=== PATIENT | female | born 2000 | race Caucasian/White ===

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

== ENCOUNTER 2022-12-30 11:26 | Inpatient (IN) ==
[2022-12-30 13:22] LABS: ABS Basophils 0.1 10^3/uL (0.0-0.1); ABS Lymphocytes 2.6 10^3/uL (1.0-4.8); ABS Monocytes 0.4 10^3/uL (0.0-0.9); ABS Neutrophils 2.1 10^3/uL (1.5-7.6); Eosinophil % 0.8 %; Hematocrit 41.5 % (35-45); Hemoglobin 14.2 g/dL (11.5-14.3); Lymphocyte % 49.3 %; Mean Corpuscular Hemoglobin 31.2 pg (27-33); Mean Corpuscular Hgb Conc 34.4 g/dL (31-36); Mean Corpuscular Volume 90.9 fL (80-97); Mean Platelet Volume 8.7 fL (7.5-11.2); Nucleated Red Blood Cells % 0.1 /100 WBC (0.0-0.4); Platelet Count 303 10^3/uL (150-450); Red Blood Count 4.56 10^6/uL (3.63-4.92); Red Cell Distribution Width 13.4 % (12-17); White Blood Count 5.2 10^3/uL (3.8-11.8)
[2022-12-30 14:08] LABS: HCG Pregnancy < 0.60 mIU/mL
[2022-12-30 14:11] LABS: ALT 6 U/L (7-52); AST 15 U/L (13-39); Acetaminophen < 15 mcg/mL; Albumin 5.1 g/dL (3.2-5.2); Albumin/Globulin Ratio 2.2 (1-3); Alcohol, S < 13 mg/dL (<13); Alkaline Phosphatase 69 U/L (35-149); Anion Gap 9 mmol/L (2-16); Blood Urea Nitrogen 8 mg/dL (6-24); C Reactive Protein 1.93 mg/L (<8.01); CO2 Carbon Dioxide 27 mmol/L (22-32); Calcium 10.4 mg/dL (8.6-10.3); Chloride 106 mmol/L (101-111); Creatinine, Serum 0.72 mg/dL (0.51-0.95); Globulin 2.3 g/dL (2-4); Glucose 95 mg/dL (70-100); Lithium < 0.10 mmol/L (0.6-1.2); Potassium 3.8 mmol/L (3.5-5.0); Salicylate < 2.50 mg/dL (<30); Sodium 142 mmol/L (135-145); Total Protein 7.4 g/dL (6.4-8.9); eGFR CKD-EPI 120.4 (>60)
[2022-12-30 14:17] LABS: TSH Ultra Thyroid Stim Horm 2.25 mcIU/mL (0.34-5.60)
[2022-12-30 16:36] LABS: Urine Appearance Cloudy; Urine Bilirubin Negative (Negative); Urine Blood Negative (Negative); Urine Color Yellow; Urine Glucose Negative (Negative); Urine Ketones Negative (Negative); Urine Nitrite Negative (Negative); Urine Protein Negative (Negative); Urine Specific Gravity 1.005 (1.002-1.030); Urine Urobilinogen Negative (Negative)
[2022-12-30 17:21] LABS: Urine Benzodiazepine Screen None Detected (None Detect); Urine Cannabinoids Screen Presumptive Positive (None Detect); Urine Opiates Screen None Detected (None Detect)
[2022-12-30] MEDS: Nicotine GUM 2MG FRUIT FLAVOR PO PRN ×2 (19:31→22:38)
[2022-12-31] MEDS: Nicotine PATCH 14 MG/24 HR PATCH TRANSDERM SCH (09:26)
[2022-12-31] MEDS: Vitamin THERAPEUTIC TAB PO SCH (09:26)
[2022-12-31] MEDS ORDERED: OLANZapine 5 mg TAB *ODT PO PRN (12:38)
[2022-12-31] MEDS: Nicotine GUM 2MG FRUIT FLAVOR PO PRN (14:26)
[2023-01-01] MEDS: Nicotine PATCH 14 MG/24 HR PATCH TRANSDERM SCH (08:24)
[2023-01-01] MEDS: Vitamin THERAPEUTIC TAB PO SCH (09:07)
[2023-01-01] MEDS: Nicotine GUM 2MG FRUIT FLAVOR PO PRN ×3 (16:03→20:56)
[2023-01-02] MEDS: Nicotine PATCH 14 MG/24 HR PATCH TRANSDERM SCH (08:39)
[2023-01-02] MEDS: Vitamin THERAPEUTIC TAB PO SCH (08:40)
[2023-01-02] MEDS: Lithium Carbonate ER 450mg TAB PO SCH (19:20)
[2023-01-02] MEDS: Nicotine GUM 2MG FRUIT FLAVOR PO PRN (23:27)
[2023-01-03] MEDS: Nicotine PATCH 14 MG/24 HR PATCH TRANSDERM SCH (07:14)
[2023-01-03] MEDS: Vitamin THERAPEUTIC TAB PO SCH (07:15)
[2023-01-03] MEDS: Al Hydrox/Mg Hydrox/Simet LIQ 30 ML UDC PO PRN (12:19)
[2023-01-03] MEDS: Nicotine GUM 2MG FRUIT FLAVOR PO PRN ×2 (14:23→20:58)
[2023-01-03] MEDS: Lithium Carbonate ER 450mg TAB PO SCH (20:55)
[2023-01-04] MEDS: Vitamin THERAPEUTIC TAB PO SCH (08:55)
[2023-01-04] MEDS: Nicotine PATCH 14 MG/24 HR PATCH TRANSDERM SCH (08:55)
[2023-01-04] MEDS: Nicotine GUM 2MG FRUIT FLAVOR PO PRN ×3 (11:05→22:40)
[2023-01-04] MEDS: Lithium Carbonate ER 450mg TAB PO SCH (20:00)
[2023-01-05] MEDS: Nicotine PATCH 14 MG/24 HR PATCH TRANSDERM SCH (09:02)
[2023-01-05] MEDS: Vitamin THERAPEUTIC TAB PO SCH (09:03)
[2023-01-05] MEDS: Nicotine GUM 2MG FRUIT FLAVOR PO PRN ×2 (18:22→22:58)
[2023-01-05] MEDS: Lithium Carbonate ER 450mg TAB PO SCH (19:28)
[2023-01-06] MEDS: Nicotine PATCH 14 MG/24 HR PATCH TRANSDERM SCH (08:48)
[2023-01-06] MEDS: Vitamin THERAPEUTIC TAB PO SCH (08:48)
[2023-01-06] MEDS: Nicotine GUM 2MG FRUIT FLAVOR PO PRN ×3 (08:51→20:31)
[2023-01-06] MEDS: OLANZapine 5 mg TAB *ODT PO SCH (10:29)
[2023-01-06] MEDS: Lithium Carbonate ER 450mg TAB PO SCH (20:28)
[2023-01-07] MEDS: Vitamin THERAPEUTIC TAB PO SCH (07:30)
[2023-01-07] MEDS: OLANZapine 5 mg TAB *ODT PO SCH (07:30)
[2023-01-07] MEDS: Nicotine PATCH 14 MG/24 HR PATCH TRANSDERM SCH ×2 (07:44→09:30)
[2023-01-07] MEDS: OLANZapine 10 mg TAB*ODT PO SCH (19:19)
[2023-01-07] MEDS: Lithium Carbonate ER 450mg TAB PO SCH (19:19)
[2023-01-08] MEDS: Vitamin THERAPEUTIC TAB PO SCH (07:42)
[2023-01-08] MEDS: OLANZapine 5 mg TAB *ODT PO SCH (07:43)
[2023-01-08] MEDS: Nicotine PATCH 14 MG/24 HR PATCH TRANSDERM SCH (07:44)
[2023-01-08] MEDS: Lithium Carb ER 300 mg TAB(NF) PO SCH (19:47)
[2023-01-08] MEDS: Lithium Carbonate ER 450mg TAB PO SCH (19:47)
[2023-01-08] MEDS: OLANZapine 10 mg TAB*ODT PO SCH (19:48)
[2023-01-08] MEDS: Al Hydrox/Mg Hydrox/Simet LIQ 30 ML UDC PO PRN (22:35)
[2023-01-09] MEDS: Al Hydrox/Mg Hydrox/Simet LIQ 30 ML UDC PO PRN ×2 (04:54→12:48)
[2023-01-09] MEDS: Nicotine PATCH 14 MG/24 HR PATCH TRANSDERM SCH (07:02)
[2023-01-09] MEDS: Vitamin THERAPEUTIC TAB PO SCH (07:03)
[2023-01-09] MEDS: OLANZapine 5 mg TAB *ODT PO SCH (07:05)
[2023-01-09] MEDS: Lithium Carbonate ER 450mg TAB PO SCH (19:42)
[2023-01-09] MEDS: Lithium Carb ER 300 mg TAB(NF) PO SCH (19:42)
[2023-01-09] MEDS: OLANZapine 10 mg TAB*ODT PO SCH (19:42)
[2023-01-10] MEDS: Nicotine PATCH 14 MG/24 HR PATCH TRANSDERM SCH (07:58)
[2023-01-10] MEDS: OLANZapine 5 mg TAB *ODT PO SCH (07:59)
[2023-01-10] MEDS: Vitamin THERAPEUTIC TAB PO SCH (07:59)
[2023-01-10] MEDS: Nicotine GUM 2MG FRUIT FLAVOR PO PRN (10:41)
[2023-01-10] MEDS: Al Hydrox/Mg Hydrox/Simet LIQ 30 ML UDC PO PRN (13:08)
[2023-01-10] MEDS: Lithium Carb ER 300 mg TAB(NF) PO SCH (19:58)
[2023-01-10] MEDS: Lithium Carbonate ER 450mg TAB PO SCH (19:59)
[2023-01-10] MEDS: OLANZapine 10 mg TAB*ODT PO SCH (20:03)
[2023-01-11] MEDS: Al Hydrox/Mg Hydrox/Simet LIQ 30 ML UDC PO PRN (01:01)
[2023-01-11] MEDS: Nicotine GUM 2MG FRUIT FLAVOR PO PRN (07:10)
[2023-01-11] MEDS: Vitamin THERAPEUTIC TAB PO SCH (07:11)
[2023-01-11] MEDS: OLANZapine 5 mg TAB *ODT PO SCH (07:11)
[2023-01-11] MEDS: Nicotine PATCH 14 MG/24 HR PATCH TRANSDERM SCH (07:12)
[2023-01-11] MEDS: Lithium Carb ER 300 mg TAB(NF) PO SCH (20:10)
[2023-01-11] MEDS: OLANZapine 10 mg TAB*ODT PO SCH (20:12)
[2023-01-11] MEDS: Lithium Carbonate ER 450mg TAB PO SCH (20:13)
[2023-01-12] MEDS: Vitamin THERAPEUTIC TAB PO SCH (08:03)
[2023-01-12] MEDS: Nicotine PATCH 14 MG/24 HR PATCH TRANSDERM SCH (08:04)
[2023-01-12] MEDS: OLANZapine 5 mg TAB *ODT PO SCH (08:04)
[2023-01-12 14:46] LABS: Chlamydia trachomatis NAA Negative (Negative); Neisseria gonorrhoeae (GC) NAA Negative (Negative)
[2023-01-12] MEDS: Lithium Carbonate ER 450mg TAB PO SCH (19:45)
[2023-01-12] MEDS: OLANZapine 10 mg TAB*ODT PO SCH (19:50)
[2023-01-12] MEDS: Lithium Carb ER 300 mg TAB(NF) PO SCH (19:51)
[2023-01-13] MEDS: Nicotine PATCH 14 MG/24 HR PATCH TRANSDERM SCH (07:36)
[2023-01-13] MEDS: OLANZapine 5 mg TAB *ODT PO SCH (07:39)
[2023-01-13] MEDS: Vitamin THERAPEUTIC TAB PO SCH (07:39)
[2023-01-13] MEDS ORDERED: Polyethylene Glycol 3350 17 GM PACKET PO PRN (09:46)
[2023-01-13] MEDS: Nicotine GUM 2MG FRUIT FLAVOR PO PRN (13:02)
[2023-01-13] MEDS: OLANZapine 10 mg TAB*ODT PO SCH (20:23)
[2023-01-13] MEDS: Lithium Carb ER 300 mg TAB(NF) PO SCH (21:07)
[2023-01-13] MEDS: Lithium Carbonate ER 450mg TAB PO SCH (21:07)
[2023-01-14] MEDS: OLANZapine 5 mg TAB *ODT PO SCH (08:36)
[2023-01-14] MEDS: Nicotine GUM 2MG FRUIT FLAVOR PO PRN (09:26)
[2023-01-14] MEDS: Nicotine PATCH 14 MG/24 HR PATCH TRANSDERM SCH (09:32)
[2023-01-14] MEDS: Vitamin THERAPEUTIC TAB PO SCH (09:34)
[2023-01-14 09:35] VITALS: BP 124/73
== END 2023-01-14 14:30 | disposition home or self-care (01) | DRG 753 ==
LOC: ED 11:26 → BSU 17:33 → ED 17:53 → BSU 01-03 06:15
PROVIDERS: ADMIT Psychiatry & Neurology Psychiatry; ATTEND Student in an Organized Health Care Education/Training Program